=== PATIENT | male | born 1975 | race Caucasian/White ===

== ENCOUNTER 2016-09-24 20:42 | Emergency (ER) | payer OTHER ==
[~2016-09-24] VITALS: Ht 188 cm; Wt 125.0 kg
[~2016-09-24 20:42] MED LIST: FLUO20SO3 PO; XANA1TAB6 PO
[2016-09-24] MEDS ORDERED: XANA1TAB2 PO (20:52)
[2016-09-24 20:53] VITALS: BP 122/56; PULSE 98; RESP 18; TEMP 98.4; O2SAT 92
--- NOTE | 2016-09-24 21:10 | PD ---
HPI Chief Complaint: Medical Clearance Time Seen by Provider: 21:10 Travel History International Travel<30 days: No Contact w/Intl Traveler<30days: No Traveled to known affect area: No History of Present Illness HPI 41-year-old male came to the emergency room brought by police handcuffed because he had a gun in the bar. He was also intoxicated. The police cadet who is currently with him was not present there but said he was told that patient was going in and out of consciousness. And currently is awake and alert with some slurred speech due to intoxication. He says he is feeling absolutely fine. He does not know why they brought him here. Vital signs were otherwise within normal limit. [facility] Past Medical History Narrative Medical List of his past medical, surgical, social and family history was reviewed from the nursing note. Anxiety: Yes Cardiovascular Problems: Yes (VASOVAGAL SYNDROME) Diminished Hearing: No Psychiatric: Yes (PTSD) Tetanus Vaccination: Unknown Influenza Vaccination: No Past Surgical History Other Surgery: Yes (RIGHT PINKY SURGERY, LEFT ABD SURGERY REMOVAL OF BULLET) Social History Alcohol Use: Yes (SOCIALLY) Tobacco Use: Yes (chews tobacco) Substance Use: No Allergies-Medications (Allergen,Severity, Reaction): Coded Allergies: No Known Allergies (Unverified , 09/24/16) Comments No known drug allergies. Reported Meds & Prescriptions Reported Meds & Active Scripts Active Reported Xanax (Alprazolam) 1 Mg Tab 1 Mg PO Q8H PRN Narrative Medication List of his home medications reviewed from the nursing note. Review of Systems Except as stated in HPI: all other systems reviewed are Neg Physical Exam Narrative GENERAL: Awake, alert, mildly intoxicated SKIN: Focused skin assessment warm/dry. HEAD: Atraumatic. Normocephalic. EYES: Pupils equal and round. No scleral icterus. No injection or drainage. ENT: No nasal bleeding or discharge. Mucous membranes pink and moist. NECK: Trachea midline. No JVD. CARDIOVASCULAR: Regular rate and rhythm. No murmur appreciated. RESPIRATORY: No accessory muscle use. Clear to auscultation. Breath sounds equal bilaterally. GASTROINTESTINAL: Abdomen soft, non-tender, nondistended. Hepatic and splenic margins not palpable. MUSCULOSKELETAL: No obvious deformities. No clubbing. No cyanosis. No edema. NEUROLOGICAL: Awake and alert. While intoxicated. No obvious cranial nerve deficits. Motor grossly within normal limits. Slurred speech. PSYCHIATRIC: Appropriate mood and affect; insight and judgment normal. Data Data Last Documented VS Vital Signs Date Time Temp Pulse Resp B/P Pulse Ox O2 Delivery O2 Flow Rate FiO2 09/24/16 20:53 98.4 98 18 122/56 92 MDM Medical Decision Making Medical Screen Exam Complete: Yes Emergency Medical Condition: Yes Medical Record Reviewed: Yes Differential Diagnosis Alcohol intoxication Narrative Course 9:21 PM I will discharge this patient home. He is going to go into police custody. Procedures EKG Prior to Arrival: No Diagnosis Primary Impression: Alcohol intoxication Qualified Code: F10.129 - Alcohol intoxication, with unspecified complication Referrals: Primary Care Physician 2 days Additional Instructions: Please return to the ER if the condition worsens or any other new concerns. Drink alcohol in moderation. Disposition: 01 DISCHARGE HOME Condition: Stable Thuy Elizondo MD Sep 24, 2016 21:10
== END 2016-09-24 21:38 | disposition home or self-care (01) ==
LOC: NEPD 20:42
DX: F10.129 Alcohol abuse with intoxication, unspecified (principal)
CPT/HCPCS: 99284